=== PATIENT | female | born 1990 | race Caucasian/White ===

== ENCOUNTER 2020-07-24 11:04 | Outpatient (CLI) | payer OTHER, SELFPAY ==
--- NOTE | ~2020-07-24 | US_ITS ---
EXAMINATION: US OB <= 14 weeks fetus DATE: 07/24/2020 12:12 INDICATION: Gestational dating TECHNIQUE: Real-time transabdominal obstetric ultrasound. FINDINGS: No prior studies for comparison. The uterus measures 12.1 x 4.9 x 7.1 cm. There is an intrauterine gestational sac, with pole id entified. The crown rump length measures 1.92 cm, which correlates with a estimated gestational age of 8 weeks 3 days. heart tones are identified measuring 176 BPM. There is a 2 cm isoechoic le adelina of the right ovary, possibly hemorrhagic cyst. Left ovary unremarkable. No free fluid in the pel vis. IMPRESSION: 1. SL IUP with an EGA of 8 weeks, 3 days (EDC by current ultrasound of 03/02/2021). Reviewed, dictated and finalized at location B. IMPRESSION: 1. SL IUP with an EGA of 8 weeks, 3 days (EDC by current ultrasound of ).
== END 2020-07-24 11:05 | disposition home or self-care (01) ==
PROVIDERS: PCP Internal Medicine; Visit Provider Obstetrics & Gynecology
DX: Z36.87 Encounter for antenatal screening for uncertain dates (principal)
CPT/HCPCS: 76801

== ENCOUNTER 2021-06-16 08:44 | Emergency (ER) | payer OTHER, SELFPAY ==
--- NOTE | ~2021-06-16 | CT_ITS ---
EXAMINATION: CT abdomen pelvis w con DATE: 06/16/2021 12:07 INDICATION: Right upper quadrant abdominal pain TECHNIQUE: Computed tomography (CT) of the abdomen and pelvis was performed with 100 cc Omnipaque 350 intravenous contrast. The dose-length product was 548.16 mGy-cm. Automated exposure control and iter ative reconstruction technique were employed. COMPARISON: None. FINDINGS: Lung bases are unremarkable. Heart size normal. No significant pleural or pericardial effus ion. No significant vascular abnormality. No lymphadenopathy. There are fluid-filled nondilated loops of small bowel throughout the abdomen with a few air-fluid levels. Colonic diverticulosis without ev idence for diverticulitis. No abnormal pelvic masses or fluid collections. Fatty infiltration of the liver. The spleen, pancreas, adrenal glands and kidneys are unremarkable. G allbladder is present. Small fat-containing umbilical hernia. No acute osseous abnormality. No free a ir or free fluid. IMPRESSION: 1. Multiple fluid-filled nondilated loops of small bowel which may reflect ileus or enteritis. No def inite obstruction. Reviewed, dictated and finalized at location A. IMPRESSION: 1. Multiple fluid-filled nondilated loops of small bowel which may reflect ileu s or enteritis. No definite obstruction.
[2021-06-16 09:05] VITALS: BP 134/85; PULSE 82; RESP 18; O2SAT 100
[2021-06-16] MEDS: SODIUM CHLORIDE 0.9% IV 1,000 ML 999 ML IV CONT (09:26)
[2021-06-16] MEDS: ONDANSETRON INJ 4 MG/2 ML VIAL IV PUSH (09:27)
[2021-06-16] MEDS: DICYCLOMINE HCL INJ 20 MG/2 ML VIAL IM (09:28)
[2021-06-16 09:47] LABS: Add Urine Microscopic? YES; Appearance Urine Clear (Clear); Bilirubin Urine Negative (Negative); Blood Urine Negative (Negative); Color Urine Yellow (Yellow); Glucose Urine UA Negative (Negative); Ketones Urine Negative (Negative); Leukocyte Esterase Ur Negative LEU/UL (Negative); Mucus Urine Rare /lpf; Nitrate Urine Negative (Negative); Protein Urine 1+ mg/dL (Negative); RBC Urine 0-2 /hpf (0-2); Specific Grav Ur 1.025 (1.001-1.035); Squamous Epithelial Cell Urine Occasional /hpf (Few); Urobilinogen Urine Negative mg/dL (<2.0); WBC Urine 0-3 /hpf
[2021-06-16 10:08] LABS: Alanine Aminotransferase 27 U/L (4-35); Albumin Level 4.9 g/dL (3.5-5.1); Alkaline Phosphatase 128 U/L (38-126); Anion Gap 12 mmol/L (8-16); Aspartate Amino Transferase 39 U/L (14-36); Bilirubin,Total 0.7 mg/dL (0.2-1.3); Blood Urea Nitrogen 20 mg/dL (7-17); Calcium 9.8 mg/dL (8.4-10.2); Carbon Dioxide 21 mmol/L (22-30); Chloride 107 mmol/L (98-107); Estimated CRCL calculation 106 ml/min; Estimated Glomerular Filt Rate > 60; Glucose 119 mg/dL (65-110); Lipase 72 U/L (23-300); Potassium 4.3 mmol/L (3.4-5.0); Sodium 140 mmol/L (137-145)
[2021-06-16 10:14] VITALS: TEMP 36.8
[2021-06-16 10:22] LABS: Basophils Percent Auto 0.2 % (0.2-1.2); Eosinophils Absolute Auto 0.3 K/mm3 (0-0.3); Eosinophils Percent Auto 2.2 % (0-4.4); Hematocrit 46.9 % (37.0-47.0); Hemoglobin 15.1 g/dL (12.0-15.0); Immature Granulocyte Absolute 0.04 K/mm3 (0.00-0.031); Immature Granulocyte Percent A 0.3 % (0-0.5); Lymphocytes Absolute Auto 1.05 K/mm3 (0.9-3.2); Lymphocytes Percent Auto 8.5 % (18.3-44.2); Mean Corpuscular HGB Conc 32.2 g/dl (32-36); Mean Corpuscular Hemoglobin 27.5 pg (26-34); Mean Corpuscular Volume 85.3 fl (80-100); Mean Platelet Volume 11.4 fl (7.4-10.4); Monocytes Absolute Auto 0.6 K/mm3 (0.1-0.6); Monocytes Percent Auto 4.8 % (2.6-8.5); Neutrophils Absolute Auto 10.4 K/mm3 (1.3-6.7); Platelet Count Result 255 k/mm3 (150-375); Red Cell Distribution Width 13.6 % (11.5-14.5); White Blood Count 12.4 K/mm3 (4.5-10.0)
[2021-06-16 12:11] VITALS: BP 138/88; PULSE 95; RESP 21; O2SAT 100
--- NOTE | 2021-06-16 13:25 | ED.GENADULT ---
HPI - General Adult General Chief complaint: Abdominal Pain Stated complaint: abd pain, n/v/d, fever Time Seen by Provider: 06/16/21 08:50 History of Present Illness HPI narrative: Patient is a 30-year-old female who presents to the ER with abdominal pain and diarrhea. Began early this morning. Has diffuse cramping. No fevers or chills. She has nausea without vomiting. She has a young child who is currently sick but does not seem to have as traumatic with symptoms. No reported fevers or chills. Has not taken any medications to alleviate her discomfort. Reports cramping is quite severe. Related Data Allergies Allergy/AdvReac Type Severity Reaction Status Date / Time No Known Allergies Allergy Verified 06/16/21 09:15 Review of Systems Review of Systems: All systems reviewed & are unremarkable except as noted in HPI and below Constitutional: Constitutional: Denies chills, Denies fever(s) and Denies weakness ENT: Denies nasal congestion and Denies sore throat Gastrointestinal: Gastrointestinal: Reports abdominal pain, Reports bloating, Denies diarrhea, Reports nausea and Denies vomiting Genitourinary: Genitourinary: Denies nocturia, Denies dysuria and Denies flank pain PMFSH Past Medical History Medical History (Updated 06/16/21 @ 19:16 by Rafael Llamas MD) Healthy female adult Surgical History Surgical History (Updated 06/16/21 @ 19:16 by Rafael Llamas MD) No pertinent past surgical history Exam Narrative: GENERAL: Well-appearing, well-nourished, and in no acute distress. HEAD: Normocephalic, atraumatic. ENT: Mucous membranes moist. CHEST: Clear to auscultation. No respiratory distress. HEART: Regular rate and rhythm. Normal peripheral pulses. ABDOMEN: Soft, mild diffuse tenderness without rebound or guarding in a specific area, nondistended, normal active bowel sounds. EXTREMITIES: Normal range of motion. No edema. SKIN: Warm, dry, no rash. NEURO: Alert and oriented x3. PSYCH: Normal mood and affect. Course Course Emergency Course: On repeat exam patient had increased discomfort in the right upper quadrant and epigastrium versus other quadrants of the abdomen. White count elevated. CT scan ordered and remarkable for enteritis. Discussed results with patient and family. Discharge home. Vital Signs Vital signs: Vital Signs Pulse Rate 82 06/16/21 09:05 Respiratory Rate 18 06/16/21 09:05 Blood Pressure 134/85 06/16/21 09:05 Pulse Oximetry 100 06/16/21 09:05 Temperature 98.3 F 06/16/21 10:14 Pulse Rate 95 06/16/21 12:11 Respiratory Rate 21 H 06/16/21 12:11 Blood Pressure 138/88 06/16/21 12:11 Pulse Oximetry 100 06/16/21 12:11 Medical Decision Making Vital Signs Vital Signs: Vital Signs Pulse Rate 82 06/16/21 09:05 Respiratory Rate 18 06/16/21 09:05 Blood Pressure 134/85 06/16/21 09:05 Pulse Oximetry 100 06/16/21 09:05 Temperature 98.3 F 06/16/21 10:14 Pulse Rate 95 06/16/21 12:11 Respiratory Rate 21 H 06/16/21 12:11 Blood Pressure 138/88 06/16/21 12:11 Pulse Oximetry 100 06/16/21 12:11 Lab Data Result diagrams: 06/16/21 09:33 06/16/21 09:33 Labs: Lab Results 06/16/21 06/16/21 06/16/21 Range/Units 09:33 09:33 09:33 WBC 12.4 H (4.5-10.0) K/mm3 RBC 5.50 H (4.2-5.4) M/mm3 Hgb 15.1 H (12.0-15.0) g/dL Hct 46.9 (37.0-47.0) % MCV 85.3 (80-100) fl MCH 27.5 (26-34) pg MCHC 32.2 (32-36) g/dl RDW 13.6 (11.5-14.5) % Plt Count 255 (150-375) k/mm3 MPV 11.4 H (7.4-10.4) fl Immature Gran % (Auto) 0.3 (0-0.5) % Neut % (Auto) 84.0 H (45.5-73.1) % Lymph % (Auto) 8.5 L (18.3-44.2) % [place] % (Auto) 4.8 (2.6-8.5) % Eos % (Auto) 2.2 (0-4.4) % Baso % (Auto) 0.2 (0.2-1.2) % Lymph # (Auto) 1.05 (0.9-3.2) K/mm3 [place] # (Auto) 0.6 (0.1-0.6) K/mm3 Eos # (Auto) 0.3 (0-0.3) K/mm3 Baso # (Auto) 0.0 (0.
== END 2021-06-16 13:46 | disposition home or self-care (01) ==
PROVIDERS: Internal Medicine; Emergency Provider Emergency Medicine
DX: K52.9 Noninfective gastroenteritis and colitis, unspecified (principal)
CPT/HCPCS: 36415; 74177; 80053; 81001; 83690; 85025; 96361; 96372; 96374; 99284; J0500; J2405; J7030; Q9967

== ENCOUNTER 2023-12-14 12:25 | Outpatient (CLI) | payer BC, SELFPAY ==
--- NOTE | ~2023-12-14 | US_ITS ---
EXAMINATION: US venous doppler [facility] DATE: 12/14/2023 13:41 INDICATION: Bilateral lower limb swelling TECHNIQUE: Grayscale ultrasound images without and with compression and Doppler ultrasound images of the bilateral lower extremity veins were obtained. COMPARISON: None. FINDINGS: The visualized portions of right common femoral vein, profunda (deep) femoral vein, femoral vein, pop liteal vein, posterior tibial veins, peroneal veins, gastrocnemius vein and greater saphenous vein ou tflow are patent. The visualized portions of left common femoral vein, profunda femoral vein, femoral vein, popliteal v ein, posterior tibial veins, peroneal veins, gastrocnemius vein and greater saphenous vein outflow ar e patent. IMPRESSION: 1. No deep venous thrombosis in either lower limb. Reviewed, dictated and finalized at location A. CAL DOCTOR NUCLEAR MEDICINE
[2023-12-14 13:08] LABS: Basophils Absolute Auto 0.04 K/mm3 (0.00-0.10); Basophils Percent Auto 0.4 % (0.0-1.0); Eosinophils Absolute Auto 0.35 K/mm3 (0.02-0.50); Eosinophils Percent Auto 3.3 % (1.0-6.0); Hematocrit 38.3 % (35.0-49.0); Hemoglobin 12.8 g/dL (12.0-15.0); Immature Granulocyte Absolute 0.15 K/mm3 (0.00-0.00); Immature Granulocyte Percent A 1.4 % (0.0-0.0); Lymphocytes Absolute Auto 2.54 K/mm3 (1.10-4.50); Lymphocytes Percent Auto 23.6 % (18.0-42.0); Mean Corpuscular HGB Conc 33.4 g/dL (32.0-36.0); Mean Corpuscular Hemoglobin 27.9 pg (27.0-31.0); Mean Corpuscular Volume 83.6 fL (78.0-102.0); Mean Platelet Volume 10.8 fl (9.2-11.8); Monocytes Absolute Auto 0.66 K/mm3 (0.10-0.90); Monocytes Percent Auto 6.1 % (2.0-11.0); Neutrophils Percent Auto 65.2 % (50.0-70.0); Platelet Count Result 213 K/mm3 (150-420); Red Blood Count 4.58 M/mm3 (4.20-5.40); Red Cell Distribution Width 14.4 % (11.6-14.4); White Blood Count 10.8 K/mm3 (4.8-10.8)
[2023-12-14 13:09] LABS: Appearance Urine Clear (Clear); Bilirubin Urine Negative (Negative); Blood Urine 3+ (Negative); Color Urine Light Yellow (Yellow); Glucose Urine UA Negative (Negative); Ketones Urine Negative (Negative); Leukocyte Esterase Ur 1+ LEU/UL (Negative); Nitrate Urine Negative (Negative); Protein Urine Negative (Negative); Urobilinogen Urine 0.2 mg/dL (0.2-1.0); pH Urine 6.5 (5.0-8.0)
[2023-12-14 13:25] LABS: Add Urine Microscopic? YES; RBC Urine 21-50 /hpf (0-2); Squamous Epithelial Cell Urine Moderate /hpf (Few)
[2023-12-14 13:26] LABS: Bacteria Urine Trace /hpf
[2023-12-14 13:37] LABS: Alanine Aminotransferase 67 U/L (14-59); Albumin Level 2.5 g/dL (3.4-5.0); Alkaline Phosphatase 113 U/L (46-116); Anion Gap 8 mmol/L (8-16); Aspartate Amino Transferase 39 U/L (15-37); Bilirubin,Total 0.3 mg/dL (0.00-1.00); Blood Urea Nitrogen 9 mg/dL (7-18); Calcium 8.4 mg/dL (8.5-10.1); Carbon Dioxide 27 mmol/L (21-32); Chloride 104 mmol/L (98-108); Estimated Glomerular Filt Rate > 60; Glucose 71 mg/dL (70-99); Osmolality Calculated 284 mOsm/kg (285-295); Potassium 4.2 mmol/L (3.5-5.1); Sodium 139 mmol/L (136-145); Total Protein 6.6 g/dL (6.4-8.2)
== END 2023-12-14 12:26 | disposition home or self-care (01) ==
PROVIDERS: PCP Internal Medicine; Visit Provider Internal Medicine
DX: R06.09 Other forms of dyspnea (principal)
CPT/HCPCS: 36415; 80053; 81001; 85025; 87077; 87086; 87088; 93970

== ENCOUNTER 2023-12-16 11:36 | Outpatient (CLI) | payer BC, SELFPAY ==
[2023-12-16 11:56] LABS: Basophils Absolute Auto 0.06 K/mm3 (0.00-0.10); Basophils Percent Auto 0.5 % (0.0-1.0); Eosinophils Absolute Auto 0.33 K/mm3 (0.02-0.50); Eosinophils Percent Auto 2.8 % (1.0-6.0); Hematocrit 42.3 % (35.0-49.0); Hemoglobin 14.3 g/dL (12.0-15.0); Immature Granulocyte Absolute 0.12 K/mm3 (0.00-0.00); Lymphocytes Absolute Auto 2.66 K/mm3 (1.10-4.50); Lymphocytes Percent Auto 22.5 % (18.0-42.0); Mean Corpuscular HGB Conc 33.8 g/dL (32.0-36.0); Mean Corpuscular Hemoglobin 28.4 pg (27.0-31.0); Mean Corpuscular Volume 83.9 fL (78.0-102.0); Mean Platelet Volume 10.4 fl (9.2-11.8); Monocytes Absolute Auto 0.79 K/mm3 (0.10-0.90); Monocytes Percent Auto 6.7 % (2.0-11.0); Neutrophils Absolute Auto 7.8 K/mm3 (1.7-7.2); Neutrophils Percent Auto 66.5 % (50.0-70.0); Platelet Count Result 281 K/mm3 (150-420); Red Blood Count 5.04 M/mm3 (4.20-5.40); Red Cell Distribution Width 14.2 % (11.6-14.4); White Blood Count 11.8 K/mm3 (4.8-10.8)
[2023-12-16 11:57] LABS: Appearance Urine Clear (Clear); Bilirubin Urine Negative (Negative); Blood Urine 3+ (Negative); Color Urine Light Yellow (Yellow); Glucose Urine UA Negative (Negative); Ketones Urine Negative (Negative); Leukocyte Esterase Ur 1+ (Negative); Nitrate Urine Negative (Negative); Protein Urine Negative (Negative); Urobilinogen Urine 0.2 mg/dL (0.2-1.0)
[2023-12-16 12:06] LABS: Add Urine Microscopic? YES; Bacteria Urine Trace /hpf; Squamous Epithelial Cell Urine Few /hpf (Few); WBC Urine None seen /hpf (0-3)
[2023-12-16 12:28] LABS: Alanine Aminotransferase 53 U/L (14-59); Albumin Level 2.9 g/dL (3.4-5.0); Alkaline Phosphatase 118 U/L (46-116); Anion Gap 11 mmol/L (8-16); Aspartate Amino Transferase 25 U/L (15-37); Bilirubin,Total 0.3 mg/dL (0.00-1.00); Blood Urea Nitrogen 15 mg/dL (7-18); Calcium 9.8 mg/dL (8.5-10.1); Carbon Dioxide 26 mmol/L (21-32); Chloride 104 mmol/L (98-108); Estimated Glomerular Filt Rate > 60; Glucose 104 mg/dL (70-99); Osmolality Calculated 292 mOsm/kg (285-295); Potassium 3.8 mmol/L (3.5-5.1); Sodium 141 mmol/L (136-145); Total Protein 7.5 g/dL (6.4-8.2)
== END 2023-12-16 11:37 | disposition home or self-care (01) ==
LOC: CHSLAB 11:41
PROVIDERS: PCP Internal Medicine; Visit Provider Internal Medicine
DX: I10 Essential (primary) hypertension (principal); N39.0 Urinary tract infection, site not specified; R74.01 Elevation of levels of liver transaminase levels
CPT/HCPCS: 36415; 80053; 81001; 85025; 87077; 87086; 87088

== ENCOUNTER 2025-05-29 14:53 | Outpatient (CLI) | payer BC, SELFPAY ==
--- NOTE | ~2025-05-29 | US_ITS ---
US thyroid INDICATION: Enlarged thyroid gland TECHNIQUE: Real-time sonographic images of the thyroid gland were obtained. COMPARISON: No prior studies for comparison. FINDINGS: The right thyroid lobe measures 3.8 x 1.6 x 1.3 cm. The left thyroid lobe measures 4 x 1.9 x 1.1 cm. There is normal echotexture and echogenicity throughout the thyroid gland. Normal echotext ure in the right thyroid lobe without mass. In the left lobe there is a small oval solid hypoechoic w ider than tall smoothly marginated mass without echogenic foci, TR 4. Normal vascular flow is presen t. Isthmus measures 2.4 mm. IMPRESSION: 1. Low suspicion mass in the left thyroid lobe which does not meet sonographic criteria for biopsy. Otherwise, unremarkable thyroid ultrasound. Reviewed, dictated and finalized at location A.
--- OUTSIDE RECORDS SUMMARY | 2025-05-29 15:00 | XMS_ITS | Referral Summary ---
Author Organization [facility] Address [address] [place] [address] Care Team Providers Care Kiln Stoker Name Role Phone Igor Austin MD Primary Care Provider [phone] Onur Cordero MD Unavailable [phone] Encounters Date Type Department Care Team Description 04/06/2025 Telephone [facility] [address] [place] [address] [address] [place] [address] Chapis Hernandez from Last 3 Months Allergies No known active allergies Medications vit 90-sjcu-yekmh-dha 27mg iron- 800 mcg-250 mg capsule Take by mouth Active cholecalciferol (VITAMIN D-3) 2000 unit tablet Take 1 tablet (2,000 Units total) by mouth daily 30 tablet 11 3 Active norethindrone (MICRONOR) 0.35 mg tabletIndications: Contraception Take one pill by mouth every day on time 28 tablet 12 4 Active Active Problems Problem Noted Date Diagnosed Date History of gestational hypertension 01/28/2021 Vitamin D deficiency 08/20/2020 Immunizations Immunization Administration Dates Next Due Influenza, Quadrivalent, Spl it, Preservative Free, Intramuscular 09/04/2023,10/19/2020 Tdap 10/09/2023,02/11/2021 Social History Tobacco Use Types Packs/Day Years Used Date Smoking Tobacco: Never Smokeless Tobacco: Never Tobacco Cessation:Counseling Given: Not Answered Alcohol Use Standard Drinks/Week Comments Never 0 (1 standard drink = 0.6 oz pur e alcohol) Social Connection and Isolat ion Panel [NHANES] Answer Date Recorded In a typical week, how many times do you talk on the phone with family, friends, or neighbors? More than three times a week 12/09/2023 How often do you get togethe r with friends or relatives? More than three times a week 12/09/2023 How often do you attend chur or sikhism services? Patient declined 12/09/2023 Do you belong to any clubs o r organizations such as religion groups, unions, fraternal or athletic groups, or school groups? Patient declined 12/09/2023 How often do you attend meet ings of the clubs or organizations you belong to? Patient declined 12/09/2023 Are you , , di vorced, , never , or living with a partner? 12/09/2023 AUDIT-C Answer Date Recorded Q1: How often do you have a drink containing alcohol? Never 12/09/2023 Q2: How many drinks containi ng alcohol do you have on a typical day when you are drinking? Patient does not drink Q3: How often do you have si x or more drinks on one occasion? Never 12/09/2023 Overall Financial Resource Strain (CARDIA) Answe r Date Recorded How hard is it for you to pa y for the very basics like food, housing, medical care, and heating? Not hard at all 12/09/2023 PHQ-2 Answer Date Recorded PHQ-2 Total Score (If total score is 3 or more points, staff should administer the PHQ-9) 0 12/09/2023 [facility] - Occupational Stress Questionnaire Answer Date Recorded Do you feel stress - tense, restless, nervous, or anxious, or unable to sleep at night because your mind is troubled all the time - these days? Not at all 12/09/2023 Exercise Vital Sign Answer Date Recorde d On average, how many days pe r week do you engage in moderate to strenuous exercise (like a brisk walk)? 0 days 12/09/2023 On average, how many minutes do you engage in exercise at this level? 0 min 12/09/2023 Hunger Vital Sign Answer Date Recorded Within the past 12 months, y ou worried that your food would run out before you got the money to buy more. Never true 12/09/19 24 Within the past 12 months, t he food you bought just didn't last and you didn't have money to get more. Never true 12/09/2023 PRAPARE - Transportation Answer Date Re corded In the past 12 months, has l ack of transportation kept you from medical appointments or from getting medications? No 11/11 In the past 12 months, has l ack of transportation kept you from meetings, work, or from getting things needed for daily living? No 12/09/2023 Housing Stability Vital Sign Answer Cm e Recorded In the last 12 months, was t here a time when you were not able to pay the mortgage or rent on time? No 12/09/2023 In the last 12 months, how many places have you lived? 1 12/09/2023 In the last 12 months, was t here a time when you did not have a steady place to sleep or slept in a fdc (including now)? No 12/09/2023 Personal Safety Answer Date Recorded Have you ever been in or are you currently in a harmful physical or emotional relationship or is someone making you feel afraid or unsafe? 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 Gender Identity Female 08/14/2020 7:36 PM CDT Sexual Orientation Not on file Last Filed Vital Signs Vital Sign Reading Time Taken Comments Blood Pressure 126/84 02/05/2024 3:33 PM CDT Pulse 71 12/11/2023 8:40 AM CHLOROBUTADIENE SCRUBBER OPERATOR Temperature 36.5 C (97.7 F) 12/10/2023 11:44 PM CHLOROBUTADIENE SCRUBBER OPERATOR Respiratory Rate 16 12/11/2023 8:40 AM CHLOROBUTADIENE SCRUBBER OPERATOR Oxygen Saturation 99% 12/10/2023 11:44 PM CHLOROBUTADIENE SCRUBBER OPERATOR Inhaled Oxygen Concentration - - Weight 88 kg (194 lb) 02/05/2024 3:33 PM CDT Height 162.6 cm (5' 4) 09/04/2023 9:19 AM CDT Body Mass Index 33.3 09/04/2023 9:19 AM CDT Plan of Treatment Not on file Procedures Procedure Name Priority Date/Time Associated Diagnosis Comments HEPATITIS C ANTIBODY Routine 06/05/2023 9:13 AM CDT Encounter for supervision of other normal in first trimester 11 weeks gestation of PAP AND HPV, REFLEX TO HPV GENOTYPES Routine 06/05/2023 8:49 AM CDT from Last 3 Months or Most Recently Relevant to Health Maintenance Results * Hepatitis C antibody (06/05/2023 9:13 AM CDT) Hep C Ab Nonreactive Nonreactive [facility] MASTERSON ([place]) Comment: Interpretive Data Nonreactive: Antibodies to HCV not detected. Does NOT exclude the possibility of recent exposure to HCV. Equivocal: Equivocal for HCV antibodies. Supplemental molecular testing will be automatically performed to determine infection status in accordance with current CDC screening recommendations. Reactive: Positive for HCV antibodies. This may represent current or past HCV infection. Supplemental molecular testing will be automatically performed to determine current infection status in accordance with current CDC screening recommendations. Interpretive data was last revised on 2020. Testing performed by: [facility], [address] [place] [address]., [id number] Blood 06/05/2023 9:13 AM CDT 06/05/2023 1:40 PM CDT Onur Cordero MD LAB MICROBIOLOGY - GENERAL ORDERABLES Edited Result - Final [facility] MASTERSON ([place]) 1 [facility] Department of Laboratories [place], [place] [id number] * Pap and HPV, reflex to HPV Genotypes (06/05/2023 8:49 AM CDT) CLINICAL INFORMATION: [facility] Comment:None given LMP [facility] Comment:03/15/2023 Previous Pap [facility] Comment:NONE GIVEN Prev. Bx [facility] Comment:NONE GIVEN SOURCE: [facility] Comment:Cervix, Endocervix Pap, specimen adequacy [facility] Comment: Satisfactory for evaluation. Endocervical/transformation zone component present. Partially obscuring inflammation HPV interp [facility] Comment: Cytology Results: Negative for intraepithelial lesion or malignancy. Broadcast Maintenance Engineer [facility] Comment: YQ, CT(ASCP) CT screening location: [place] [address] [address] [place] [address] [address] Review fighter pilot [facility] Comment: [place], CT(ASCP) CT Screening location: [facility] Administration [place] [address] Comment [facility] Comment: EXPLANATORY NOTE: The Pap is a screening test for cervical cancer. It is not a diagnostic test and is subject to false negative and false positive results. It is most reliable when a satisfactory sample, regularly obtained, is submitted with relevant clinical findings and history, and when the Pap result is evaluated along with historic and current clinical information. Human papillomavirus DNA, High Risk E6/E7 Not Detected NOT DETECTED Rahel Olvera /Mayur [facility] [place] Comment: Not Detected High Risk HPV types (16,18,31,33,35,39,45,51,52, 56,58,59,66,68) were not detected. Other HPV types which cause anogenital lesions may be present. The significance of the other types of HPV in malignant processes has not been established. Methodology: Real Time PCR 06/05/2023 8:49 AM CDT 06/08/2023 7:13 AM CDT Onur Cordero MD LAB CYTOLOGY ORDERABLES Fi nal Result [place] [address] [place] [address] [facility] [address] [address] from Last 3 Months or Most Recently Relevant to Health Maintenance [place] Advance Directives For more information, please contact: [phone] * Full Code (Latest Code Status on File) Date Activated Date Inactivated Comments 12/09/2023 6:52 AM 12/11/2023 5:48 PM Full CPR in c ase of cardiopulmonary arrest * Full Code Date Activated Date Inactivated Comments 02/12/2021 7:14 PM 02/15/2021 8:53 PM Full CPR in ca se of cardiopulmonary arrest Care Teams Kiln Stoker Relationship Specialty Start Date End Date Igor Austin MD PCP - General Internal Medicine 08/06/20 Onur Cordero MD [address] [facility] [address] MCLEAN [address] [place] [id number] Order Clerk Obstetrics and Gynecology 02/15/21
--- OUTSIDE RECORDS SUMMARY | 2025-05-29 15:00 | XMS_ITS | Clinical Summary ---
Author Organization [facility] Address [address] [place] [address] Care Team Providers Care Motorcycle Police Officer Name Role Phone Igor Austin MD Primary Care Provider [phone] Onur Cordero MD Unavailable [phone] Allergies No known active allergies Medications vit 10-fwnv-kgqvz-dha 27mg iron- 800 mcg-250 mg capsule Take [...] gestational hypertension 01/28/2021 Vitamin D deficiency 08/20/2020 Encounters Date Type Department Care Team Description 04/06/2025 Telephone [email or web address] [address] [place] [address] [address] [place] [address] Chapis Hernandez from Last 3 Months Immunizations Immunization Administration Dates Next Due Influenza, Quadrivalent, Spl it, Preservative Free, Intramuscular 09/04/2023,10/19/2020 Tdap 10/09/2023,02/11/2021 Family History Medical History Relation Name Comments Hypertension Father Diabetes Maternal Grandmother Diabetes Paternal Grandmother Relation Name Status Comments Father Maternal Grandmother Paternal Grandmother Social History Tobacco Use Types Packs/Day Years [...] 12/09/2023 How often do you attend chur ch or sabianism services? Patient declined 12/09/2023 Do you belong to any clubs o r organizations such as spiritism groups, unions, fraternal or athletic groups, or [...] staff should administer the PHQ-9) 0 12/09/2023 [facility] Occupat ional Health - Occupational Stress [...] place to sleep or slept in a jail (including now)? No 12/09/2023 Personal Safety Answer Date Recorded Have you ever been in or are you currently in a harmful physical or emotional relationship or is someone making you feel afraid or unsafe? 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 Gender Identity Female 08/14/2020 7:36 PM CDT Sexual Orientation Not on file Obstetrics History Para Term AB IAB SAB Ectopic Multiple Livin g Live Births 4 2 2 0 2 0 2 0 0 2 2 Date Outcome GA Total Labor Labor/2nd/3rd Weight Sex Type Anes PTL Lin A1 A5 Name Clin 2020 Term 37w 2d 6h 36m 5h 55m/0h 32m/0h 09m 3.055 kg (6 lb 11.8 oz) F Vag-Sp ont Epidur al N Livin g 7 9 SNEARito HCLIFTON, Lloyd Armendariz MD Delivery Location:[facility] ([facility]) 2022 SAB 6w0 d SAB 2022 SAB 4w0 d Bioche mical 2023 Term 39w 0d 0h 53m 0h 37m/0h 07m/0h 09m 3.79 kg (8 lb 5.7 oz) M Vagina l Local, Epidur al N Livin g 9 9 [facility] Khris Euceda h Bonnie y, Lloyd Armendariz MD Complications:None Delivery Location:[facility] ([facility]) Last Filed Vital Signs Vital Sign Reading Time Taken Comments Blood Pressure 126/84 02/05/2024 3:33 PM CDT Pulse 71 12/11/2023 8:40 AM JOINTER MACHINE Temperature 36.5 C (97.7 F) 12/10/2023 11:44 PM JOINTER MACHINE Respiratory Rate 16 12/11/2023 8:40 AM JOINTER MACHINE Oxygen Saturation 99% 12/10/2023 11:44 PM JOINTER MACHINE Inhaled Oxygen Concentration - - Weight 88 kg (194 lb) 02/05/2024 3:33 PM CDT Height 162.6 cm (5' 4) 09/04/2023 9:19 AM CDT Body Mass Index 33.3 09/04/2023 9:19 AM CDT Plan of Treatment Health Maintenance Due Date Last Done Comments Varicella Vaccines (1 of 2 - 13+ 2-dose series) 2004 Hepatitis B Screening 2009 Regular Well Visit/Exam 18-64 03/28/2023 03/28/2022 Cervical Cancer Screening 06/05/2024 06/05/2023, Depression Screening 12/04/2024 12/04/2023, 12/04/2023, 12/03/2023, Additional history exists Influenza Vaccine (#1) 2025 , 10/19/2020, 09/07/2018 DTaP/Tdap/Td Vaccine (3 - Td or Tdap) 10/09/2033 10/09/2023, 02/11/2021 Hepatitis C Screening Completed 06/05/2023, 020 HPV Vaccines Aged Out No longer eligi ble based on patient's age to complete this topic Pneumococcal vaccine <65 Aged Out No longer eligible based on patient's age to complete this topic Procedures Procedure Name Priority Date/Time Associated Diagnosis [...] Hep C Ab Nonreactive Nonreactive [facility] MASTERSON ([place]) Comment: Interpretive Data Nonreactive: Antibodies to HCV [...] last revised on 2020. Testing performed by: [facility], [address] [place] [address]., [id number] Blood 06/05/2023 9:13 AM CDT 06/05/2023 1:40 PM CDT Onur Cordero MD LAB MICROBIOLOGY - GENERAL ORDERABLES Edited Result - Final [facility]AN[facility] ZELALEM ([place]) 1 [facility] Department [place] [address] * Pap and HPV, reflex to HPV Genotypes (06/05/2023 8:49 AM CDT) CLINICAL INFORMATION: [facility] Comment:None given LMP [facility] Comment:03/15/2023 Previous Pap [facility] Comment:NONE GIVEN Prev. Bx [facility] Comment:NONE GIVEN SOURCE: [facility] Comment:Cervix, Endocervix Pap, specimen adequacy [facility] Comment: Satisfactory for evaluation. Endocervical/transformation zone component present. Partially obscuring inflammation HPV interp [facility] Comment: Cytology Results: Negative for intraepithelial lesion or malignancy. Guitar Maker [facility] Comment: YQ, CT(ASCP) CT screening location: [place] [address] [place] [address] Review foreign language interpreter [facility] Comment: [place], CT(ASCP) CT Screening location: [facility] Administration [place] [address] Comment [facility] Comment: EXPLANATORY NOTE: The Pap is a [...] Not Detected NOT DETECTED Rahel Olvera /Mayur [facility] Comment: Not Detected High Risk HPV types (16,18,31,33,35,39,45,51,52, 56,58,59,66,68) were not detected. Other HPV types which cause anogenital lesions may be present. The significance of the other types of HPV in malignant processes has not been established. Methodology: Real Time PCR 06/05/2023 8:49 AM CDT 06/08/2023 7:13 AM CDT Onur Cordero MD LAB CYTOLOGY ORDERABLES Fi nal Result [facility] [address] [place] [address] [facility] [address] [facility] [place] [address] from Last 3 Months or Most Recently Relevant to Health Maintenance [place] Advance Directives For more information, please contact: [phone] * Full Code (Latest Code Status on File) Date Activated Date Inactivated Comments 12/09/2023 6:52 AM 12/11/2023 5:48 PM Full CPR in c ase of cardiopulmonary arrest * Full Code Date Activated Date Inactivated Comments 02/12/2021 7:14 PM 02/15/2021 8:53 PM Full CPR in ca se of cardiopulmonary arrest Care Teams Motorcycle Police Officer Relationship Specialty Start Date End Date Igor Austin MD PCP - General Internal Medicine 08/06/20 Onur Cordero MD [address] [place] [address] DR MCLEAN [address] [place] [id number] Drafter Topographical Obstetrics and Gynecology 02/15/21
== END 2025-05-29 14:54 | disposition home or self-care (01) ==
PROVIDERS: PCP Internal Medicine; Visit Provider Internal Medicine
DX: E01.0 Iodine-deficiency related diffuse (endemic) goiter (principal)
CPT/HCPCS: 76536

== ENCOUNTER 2025-06-26 13:54 | Outpatient (CLI) | payer BC, SELFPAY ==
--- NOTE | ~2025-06-26 | US_ITS ---
US right upper quadrant INDICATION: Right upper quadrant pain PROCEDURE: Realtime right upper abdominal ultrasound. COMPARISON: CT dated 06/16/2021 FINDINGS: The pancreas is normal without focal mass or pancreatic ductal dilation. Liver echotexture is normal without focal mass or intrahepatic biliary dilatation. There is normal directional flow i n the portal vein. There are small gallbladder polyps largest measuring 6 mm. No definite gallstones, gallbladder wall t hickening or pericholecystic fluid. Common bile duct measures 4.5 mm. No sonographic Ortiz's sign. IMPRESSION: 1: Gallbladder polyps. Reviewed, dictated and finalized at location A. IMPRESSION: 1: Gallbladder polyps.
--- OUTSIDE RECORDS SUMMARY | 2025-06-26 15:05 | XMS_ITS | Clinical Summary ---
[facility] Organization [facility] Address [address] [place] [address] Care Team Providers Care Loader Unloader Name Role Phone Igor Austin MD Primary Care Provider [phone] Onur Cordero MD Unavailable [phone] Allergies No known active allergies Medications vit 04-adrq-[id number]-dha 27mg iron- 800 mcg-250 mg capsule Take [...] Type Department Care Team Description 04/06/2025 Telephone Jose Roberto [facility] [address] [place] [address] [address] [place] [address] Chapis Hernandez from Last 3 [...] oz pur e alcohol) Social Connection and Isolation Panel Answer Date Recorded In a typical week, how many times do you talk on the phone with family, friends, or neighbors? More than three times a week 12/09/2023 How often do you get togethe r with friends or relatives? More than three times a week 12/09/2023 How often do you attend chur ch or buddhist services? Patient declined 12/09/2023 Do you belong to any clubs o r organizations such as episcopal groups, unions, fraternal or athletic groups, or [...] staff should administer the PHQ-9) 0 12/09/2023 [facility] - Occupational Stress [...] place to sleep or slept in a long-term (including now)? No 12/09/2023 Personal Safety Answer Date Recorded Have you ever been in or are you currently in a harmful physical or emotional relationship or is someone making you feel afraid or unsafe? Denies 12/09/2023 Comments No Sex and Gender Information Value Date Recorded Sex Assigned at Not on file Legal Sex Female 10:47 PM PROJECT COORDINATOR Gender Identity Female 08/14/2020 7:36 PM CDT [...] Epidur al N Livin g 7 9 SNEAT HCLIFTON, Lloyd Armendariz MD Delivery Location:[facility] Facil [facility]y ([facility]) 2022 SAB 6w0 d SAB 2022 SAB 4w0 d Bioche mical 2023 Term 39w 0d 0h 53m 0h 37m/0h 07m/0h 09m 3.79 kg (8 lb 5.7 oz) M Vagina l Local, Epidur al N Livin g 9 9 [facility] Khris Euceda h Lloyd Ricks MD Complications:None Delivery Location:[facility] ([facility]) Last Filed Vital Signs Vital Sign Reading Time Taken Comments Blood Pressure 126/84 02/05/2024 3:33 PM CDT Pulse 71 12/11/2023 8:40 AM PROJECT COORDINATOR Temperature 36.5 C (97.7 F) 12/10/2023 11:44 PM PROJECT COORDINATOR Respiratory Rate 16 12/11/2023 8:40 AM PROJECT COORDINATOR Oxygen Saturation 99% 12/10/2023 11:44 PM PROJECT COORDINATOR Inhaled Oxygen Concentration - - Weight 88 kg (194 lb) 02/05/2024 3:33 PM CDT Height 162.6 cm (5' 4) 09/04/2023 9:19 AM CDT Body Mass Index 33.3 09/04/2023 9:19 AM CDT Plan of Treatment Health Maintenance Due Date Last Done Comments Varicella Vaccines (1 of 2 - 13+ 2-dose series) 2004 Hepatitis B Screening 2009 HPV Vaccines (1 - 3-dose SCDM series) 2018 Regular Well Visit/Exam 18-64 03/28/2023 03/28/2022 Cervical Cancer Screening 06/05/2024 06/05/2023, Depression Screening 12/04/2024 12/04/2023, 12/04/2023, 12/03/2023, Additional history exists Influenza Vaccine (#1) 2025 , 10/19/2020, 09/07/2018 DTaP/Tdap/Td Vaccine (3 - Td or Tdap) 10/09/2033 10/09/2023, 02/11/2021 Hepatitis C Screening Completed 06/05/2023, 020 Pneumococcal vaccine <65 Aged Out No longer [...] Hep C Ab Nonreactive Nonreactive SHAWANDA MASTERSON ([place]) Comment: Interpretive Data Nonreactive: Antibodies to HCV [...] last revised on 2020. Testing performed by: [facility], [address] [place] [address]., [id number] Blood 06/05/2023 9:13 AM CDT 06/05/2023 1:40 PM CDT Onur Cordero MD LAB MICROBIOLOGY - GENERAL ORDERABLES Edited Result - Final SHAWANDA MASTERSON ([place]) 1 [facility] [place] [address] * Pap and HPV, reflex to HPV Genotypes (06/05/2023 8:49 AM CDT) CLINICAL INFORMATION: [facility] Comment:None given LMP [facility] Comment:03/15/2023 Previous Pap [facility] Comment:NONE GIVEN Prev. Bx [facility] Comment:NONE GIVEN SOURCE: [facility] Comment:Cervix, Endocervix Pap, specimen adequacy [facility] Comment: Satisfactory for evaluation. Endocervical/transformation zone component present. Partially obscuring inflammation HPV interp [facility] Comment: Cytology Results: Negative for intraepithelial lesion or malignancy. Nuclear Fuel Processing Technician [facility] Comment: YQ, CT(ASCP) CT screening location: [place] [address] [address] [address] Review studio data analyst [facility] Comment: [place]NA[place], CT(ASCP) CT Screening location: [facility] Administration [address] [address] Comment [facility] Comment: EXPLANATORY NOTE: The Pap [...] Not Detected NOT DETECTED Rahel Olvera /[facility] [place] Comment: Not Detected High Risk HPV types (16,18,31,33,35,39,45,51,52, 56,58,59,66,68) were not detected. Other HPV types which cause anogenital lesions may be present. The significance of the other types of HPV in malignant processes has not been established. Methodology: Real Time PCR 06/05/2023 8:49 AM CDT 06/08/2023 7:13 AM CDT Onur Cordero MD LAB CYTOLOGY ORDERABLES Fi nal Result [place] [address] [place] [address] [facility]hel [facility] [address] [place] [address] from Last 3 Months or Most Recently Relevant to Health Maintenance Insurance [place] Advance Directives For more information, please contact: [phone] * Full Code (Latest Code Status on File) Date Activated Date Inactivated Comments 12/09/2023 6:52 AM 12/11/2023 5:48 PM Full CPR in c ase of cardiopulmonary arrest * Full Code Date Activated Date Inactivated Comments 02/12/2021 7:14 PM 02/15/2021 8:53 PM Full CPR in ca se of cardiopulmonary arrest Care Teams Loader Unloader Relationship Specialty Start Date End Date Igor Austin MD PCP - General Internal Medicine 08/06/20 Onur Cordero MD [address] [place] [address] Research Editor Obstetrics and Gynecology 02/15/21
== END 2025-06-26 13:55 | disposition home or self-care (01) ==
LOC: CHSIMG 13:56
PROVIDERS: PCP Internal Medicine; Visit Provider Internal Medicine
DX: R10.11 Right upper quadrant pain (principal); K82.4 Cholesterolosis of gallbladder
CPT/HCPCS: 76705

== ENCOUNTER 2025-07-17 07:55 | Outpatient (CLI) | payer BC, SELFPAY ==
--- NOTE | ~2025-07-17 | CT_ITS ---
EXAMINATION: CT abdomen pelvis w con DATE: 07/17/2025 08:27 INDICATION: Right upper quadrant pain TECHNIQUE: Computed tomography (CT) of the abdomen and pelvis was performed with 100 cc Omnipaque 350 intravenous contrast. The dose-length product was 311.15 mGy-cm. Automated exposure control and iterative reconstruction technique were employed. COMPARISON: None. FINDINGS: Lung bases unremarkable. Heart size normal. No significant pleural or pericardial effusion. Fatty infiltration of the liver. Gallbladder is present. The spleen, pancreas, adrenal glands and kidneys are unremarkable. Gallbladder is present. Nonobstructive bowel pattern. Moderate fecal loading of the distal colon and rectum. No abnormal pelvic masses or fluid collections. No significant vascular abnormality. There is thickening of the pylorus, consistent with gastritis. No evidence for perforation. No acute osseous abnormality. IMPRESSION: 1. Abnormal thickening of the pylorus, consistent with gastritis. No perforation. Reviewed, dictated and finalized at location O. IMPRESSION: 1. Abnormal thickening of the pylorus, consistent with gastritis. No perforatio n.
--- OUTSIDE RECORDS SUMMARY | 2025-07-17 08:12 | XMS_ITS | Clinical Summary ---
Author Organization [facility] Building B Address [address] [place] [address] Care Team Providers Care Powder Truck Driver Name Role Phone Igor Austin MD Primary Care Provider [phone] Onur Cordero MD Unavailable [phone] Allergies No known active allergies Medications vit 17-fkwm-dflgi-dha 27mg iron- 800 mcg-250 mg capsule Take [...] often do you attend chur ch or orthodox services? Patient declined 12/09/2023 Do you belong to any clubs o r organizations such as voodoo groups, unions, fraternal or athletic groups, or [...] staff should administer the PHQ-9) 0 12/09/2023 [facility] - Occupational Stress Questionnaire Answer Date Recorded [...] place to sleep or slept in a prison (including now)? No 12/09/2023 Personal Safety Answer Date Recorded Have you ever been in or are you currently in a harmful physical or emotional relationship or is someone making you feel afraid or unsafe? Denies 12/09/2023 Comments No Sex and Gender Information Value Date Recorded Sex Assigned at Not on file Legal Sex Female 10:47 PM ELECTRONIC DRAFTER Gender Identity Female 08/14/2020 7:36 PM CDT [...] Epidur al N Livin g 7 9 CLIFTON BRUNO Josep h Mark, MD Delivery Location:This [facility] ity ([facility]) 2022 SAB 6w0 d SAB 2022 SAB 4w0 d Bioche mical 2023 Term 39w 0d 0h 53m 0h 37m/0h 07m/0h 09m 3.79 kg (8 lb 5.7 oz) M Vagina l Local, Epidur al N Livin g 9 9 [facility] Khris Euceda h Bonnie y, Lloyd Armendariz MD Complications:None Delivery Location:[facility] ([facility]) Last Filed Vital Signs Vital Sign Reading Time Taken Comments Blood Pressure 126/84 02/05/2024 3:33 PM CDT Pulse 71 12/11/2023 8:40 AM ELECTRONIC DRAFTER Temperature 36.5 C (97.7 F) 12/10/2023 11:44 PM ELECTRONIC DRAFTER Respiratory Rate 16 12/11/2023 8:40 AM ELECTRONIC DRAFTER Oxygen Saturation 99% 12/10/2023 11:44 PM ELECTRONIC DRAFTER Inhaled Oxygen Concentration - - Weight 88 [...] last revised on 2020. Testing performed by: [facility], [address] [place] [address]., [id number] Blood 06/05/2023 9:13 AM CDT 06/05/2023 1:40 PM CDT Onur Cordero MD LAB MICROBIOLOGY - GENERAL ORDERABLES Edited Result - Final SHAWANDA ZELALEM ([place]) 1 [facility] [place] [address] * Pap and HPV, reflex to HPV Genotypes (06/05/2023 8:49 AM CDT) CLINICAL INFORMATION: [facility] Comment:None given [facility] Comment:03/15/2023 Previous Pap [facility] Comment:NONE GIVEN Prev. Bx [facility] Comment:NONE GIVEN SOURCE: [facility] Comment:Cervix, Endocervix Pap, specimen adequacy [facility] Comment: Satisfactory for evaluation. Endocervical/transformation zone component present. Partially obscuring inflammation HPV interp [facility] Comment: Cytology Results: Negative for intraepithelial lesion or malignancy. Coil Spring Assembler [facility] [employer] [facility] Comment: YQ, CT(ASCP) CT screening location: [place] [address] [address] [address] [address] Review mems integration engineer [facility] Comment: [place]NA[place], CT(ASCP) CT Screening location: [address] [place] [address] Comment [facility] Comment: EXPLANATORY NOTE: The Pap is a [...] Not Detected NOT DETECTED [facility] Comment: Not Detected High Risk HPV types (16,18,31,33,35,39,45,51,52, 56,58,59,66,68) were not detected. Other HPV types which cause anogenital lesions may be present. The significance of the other types of HPV in malignant processes has not been established. Methodology: Real Time PCR 06/05/2023 8:49 AM CDT 06/08/2023 7:13 AM CDT Onur Cordero MD LAB CYTOLOGY ORDERABLES Fi nal Result [facility] [address] [place] [address] Rahel [employer] [address] [facility] [place] [address] from Last 3 Months or Most Recently Relevant to Health Maintenance Insurance [address] [place] [id number] CHOICE [facility] PPO [place] Advance Directives For more information, please contact: [phone] * Full Code (Latest Code Status on File) Date Activated Date Inactivated Comments 12/09/2023 6:52 AM 12/11/2023 5:48 PM Full CPR in c ase of cardiopulmonary arrest * Full Code Date Activated Date Inactivated Comments 02/12/2021 7:14 PM 02/15/2021 8:53 PM Full CPR in ca se of cardiopulmonary arrest Care Teams Powder Truck Driver Relationship Specialty Start Date End Date Igor Austin MD PCP - General Internal Medicine 08/06/20 Onur Cordero MD [address] [place] [address] [place] [address] Executive Coordinator Obstetrics and Gynecology 02/15/21
== END 2025-07-17 07:56 | disposition home or self-care (01) ==
LOC: CHSIMG 07:57
PROVIDERS: PCP Internal Medicine; Visit Provider Internal Medicine
DX: R10.11 Right upper quadrant pain (principal)
CPT/HCPCS: 74177; Q9967

== ENCOUNTER 2025-07-24 11:20 | Outpatient (CLI) | payer BC, SELFPAY ==
--- NOTE | ~2025-07-24 | NM_ITS ---
EXAMINATION: [id number]_NM DATE: 07/24/2025 13:41 INDICATION: Right upper quadrant abdominal pain COMPARISON: None. TECHNIQUE: 5.9 mCi Tc-99m mebrofenin (Choletec) was administered intravenously. Scintigraphic images of the abdomen were obtained for one hour. 1.5 mcg sincalide (Kinevac) was administered by slow intravenous infusion, and imaging was continued for 30 minutes. Gallbladder ejection fraction was calculated by the technologist. FINDINGS: There is normal clearance of radiotracer from the blood pool. There is homogeneous tracer uptake by the liver. Activity progresses to the gallbladder and bowel. The gallbladder ejection fraction (GBEF) is 50% (normal 10-90%, but most patient with gallbladder dysfunction have GBEF < 35% which does overlap with the normal range). IMPRESSION: 1. Normal hepatobiliary scan. Reviewed, dictated and finalized at location A.
== END 2025-07-24 11:21 | disposition home or self-care (01) ==
LOC: CHSIMG 11:21
PROVIDERS: PCP Internal Medicine; Visit Provider Internal Medicine
DX: R10.9 Unspecified abdominal pain (principal); R10.11 Right upper quadrant pain
CPT/HCPCS: 78227; A9537; J2805